=== PATIENT | male | born 1995 | race Caucasian/White ===

== ENCOUNTER 2016-10-16 22:40 | Emergency (ER) | payer OTHER ==
[2016-10-16] MEDS ORDERED: Zofran 4 MG/2 ML VIAL IV ONE (23:19)
[2016-10-16] MEDS ORDERED: Dextrose 5%-Lr IV Solution 1000 ML 1,000 ML IV ONE ×2 (23:21→23:26)
[2016-10-16] MEDS ORDERED: Zofran 4 MG/2 ML VIAL ONE (23:26)
[2016-10-16 23:30] LABS: BASOPHIL % 0.1 % (0.0-0.4); Lymphocytes % 4.2 % (24.0-44.0); Mean Cell Volume 85.3 fl (78-100); Mean Corpuscular Hemoglobin 30.9 pg (26-32); Monocytes % 5.7 % (0.0-12.0); Platelet Count 413 K/mm3 (150-450); Red Blood Count 6.05 M/mm3 (4.1-5.6); Red Cell Distribution Width 13.6 % (11.5-14.0); White Blood Count 20.4 K/mm3 (4.0-10.5)
[2016-10-16 23:37] LABS: Lactic Acid 2.4 (0.4-2.0)
[2016-10-16 23:54] LABS: ALBUMIN 6.4 g/dL (3.4-5.0); ANION GAP 25.7 MEQ/L (5-15); BILIRUBIN,TOTAL 1.3 mg/dL (0.2-1.0); Carbon Dioxide 22.8 mEq/L (21-32); Potassium 5.4 mEq/L (3.5-5.1); Total Protein 10.7 gm/dL (6.4-8.2)
[2016-10-17] MEDS ORDERED: Sodium Chloride 0.9% 1000 ML 1,000 ML IV STA (00:17)
[2016-10-17] MEDS ORDERED: Sodium Chloride 0.9% 1000 ML 1,000 ML ONE (00:23)
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
[2016-10-17] MEDS ORDERED: SODIUM BICARBONATE 50 MEQ/50 ML ABBOJECT IV ONE ×2 (00:43→00:49)
[2016-10-17] MEDS ORDERED: Sodium Bicarbonate 50 MEQ/50 ML VIAL ONE (00:48)
[2016-10-17 01:29] VITALS: BP 135/71; PULSE 78
[2016-10-17 03:54] VITALS: O2SAT 97
== END 2016-10-17 01:35 | disposition short-term general hospital (02) ==
LOC: ED 22:40
DX: T67.2XXA Heat cramp, initial encounter (principal); N17.8 Other acute kidney failure; M62.82 Rhabdomyolysis
CPT/HCPCS: 36000; 36415; 80053; 82150; 82550; 83605; 83690; 83735; 85025; 96360; 96361; 96374; 96375; 99285; J2405